=== PATIENT | male | born 1955 | race Caucasian/White ===

== ENCOUNTER 2019-08-14 09:00 | Observation (INO) | payer BC, OTHER ==
[2019-08-13 08:39] VITALS: BMI 25.7
[~2019-08-14 09:00] MED LIST: HEPARIN SODIUM,PORCINE 5,000 UNIT/ML 1 ML VIAL SQ ONE
[2019-08-14] MEDS ORDERED: fentaNYL (PF) 50 MCG/ML 2 ML AMP IV PRN (09:07)
[2019-08-14] MEDS ORDERED: LIDOCAINE 1% (10MG/ML) FOR IV START INTRADERMA ONE ×2 (10:20)
[2019-08-14] MEDS: LACTATED RINGERS 1,000 ML IV SCH (10:20)
[2019-08-14] MEDS ORDERED: DEXAMETHASONE SOD PHOSPHATE 10 MG/ML 1 ML VIAL IV ONE (10:20)
[2019-08-14] MEDS: ONDANSETRON 4 MG/2 ML VIAL IVP ONE ×2 (10:20→15:10)
[2019-08-14 10:24] LABS: Appearance,Urine Clear (Clear); Bilirubin,Urine Negative (Negative); Blood,Urine Trace (Negative); Color,Urine Yellow; Glucose,Urine (UA) Negative (Negative); Hyaline Casts,Urine 1 /lpf (0-2); Ketones,Urine Negative (Negative); Leukocyte Esterase,Urine Negative (Negative); Mucus,Urine Many /hpf; Nitrite,Urine Negative (Negative); Protein,Urine Trace (Negative); RBC,Urine 6 /hpf (0-5); Specific Gravity,Urine 1.033 (1.001-1.035); Urobilinogen,Urine <2.0 mg/dL (<2.0); WBC,Urine 1 /hpf (0-5)
[2019-08-14 10:35] LABS: HCT 41.5 % (39.0-53.0); HGB 13.8 gm/dL (13.0-17.5); MCH 28.8 pg (25.0-35.0); MCHC 33.1 g/dL (31.0-37.0); MCV 86.9 fL (80.0-100.0); Mean Platelet Volume 7.2; Platelet Count 243 k/uL (150-450); RBC 4.78 m/uL (4.30-5.90); RDW 12.6 % (11.5-15.5); WBC 6.3 k/uL (3.8-10.6)
[2019-08-14 10:51] LABS: Potassium 4.5 mmol/L (3.5-5.1)
[2019-08-14] MEDS ORDERED: GLYCOPYRROLATE 0.2 MG/ML 2 ML VIAL ONE (12:31)
[2019-08-14] MEDS ORDERED: MIDAZOLAM 2 MG/2 ML VIAL ONE (12:31)
[2019-08-14] MEDS ORDERED: LIDOCAINE 1% INJ 10MG/ML (20 ML MDV) ONE (12:31)
[2019-08-14] MEDS ORDERED: NEOSTIGMINE 1 MG/ML 10 ML VIAL ONE (12:31)
[2019-08-14] MEDS ORDERED: fentaNYL (PF) 50 MCG/ML 2 ML AMP ONE (12:31)
[2019-08-14] MEDS ORDERED: PROPOFOL 10 MG/ML 20 ML VIAL IV ONE (12:31)
[2019-08-14] MEDS ORDERED: ROCURONIUM BROMIDE 10 MG/ML 5 ML VIAL IV ONE (12:31)
[2019-08-14] MEDS ORDERED: SUCCINYLCHOLINE CHLORIDE 100 MG/5 ML SYR IV ONE (12:31)
[2019-08-14] MEDS ORDERED: BUPIVACAINE (PF) 0.25% 30 ML VIAL SQ ONE ×3 (13:05→14:49)
--- NOTE | 2019-08-14 14:21 | P.OP ---
Date of Procedure: 08/14/19 Preoperative Diagnosis: Prostate cancer Postoperative Diagnosis: Prostate cancer Procedure(s) Performed: Robotic radical prostatectomy Robotic extended bilateral pelvic pelvic lymph node dissection Anesthesia: SUNNY Surgeon: Chon Chase [employer] #1: Rhys Gonzalez Estimated Blood Loss (ml): 100 IV fluids (ml): 1,000 Urine output (ml): 150 Pathology: other (Prostate and seminal vesicles. Right and left pelvic lymph nodes) Condition: stable Disposition: PACU Indications for Procedure: Unfavorable intermediate risk prostate cancer Operative Findings: #1 large prostate #2 but bilateral enlarged lymph nodes Description of Procedure: This is a patient with a history of prostate cancer. The procedure of robot assisted laparoscopic radical prostatectomy was discussed with the patient including the potential risks and complications of the procedure. He elected to proceed with the operation. A nodule was not detected on digital exam under anesthesia.The patient was placed in a supine, Trendelenberg position with adequate padding of the pressure points, shoulders, back, legs and arms. He was then prepped and draped in the standard fashion. A 18F zee catheter was placed to gravity drainage. A Veress needle was placed through a mera-umbilical puncture and a pneumo-peritoneum created to 20mmHg during port placement which is thereafter lowered to 15mmHg.A 8 mm port on the left side of the umbilicus was placed for the scope. Next,under vision a 8mm robotic ports was placed lateral to each rectus slightly below the camera port. The right security assistant right iliac fossa 12mm port and right paramedian 5mm port were placed followed by the left iliac fossa 5mm port. The robot was then docked to the 8mm robotic ports and then each robotic arm and tower was checked in relation to the patient's legs and hands to avoid inadvertent compression.The peritoneal cavity was inspected and then an inverted U-shaped incision began laterally to the left medial umbilical ligament and extended high across the midline to the right umbilical ligament. The limbs of the "U" extended to the level of the vasa on both sides. We next developed the preperitoneal space and the space of Retzius. The endopelvic fascia was divided and the levator muscle was reflected off the lateral surface of the prostate. Cautery was used to dissected the bladder away from the prostate. After the anterior bladder neck was incised and the bladder entered the the posterior bladder neck was exposed and the ureteral orifices identified. The posterior bladder neck was then incised and dissected away from the prostate. The bladder neck was noted to be normal and did not require reconstruction. The vas and the seminal vesicles were now exposed and dissected to their insertions into the prostate and were not spared. The posterior layer of the Denonvillier's fascia was incised to enter into the plane between prostate and perirectal fat.Each lateral pedicle was controlled with clips and cautery for hemostasis. Nerve preservation was performed on the right and no nerve sparing on the left side. The puboprostatic ligament was incised where it inserted into the apex of the prostate and a plane between urethra and dorsal venous complex developed to expose the anterior urethral surface. The anterior wall of the urethra was transected with the scissors a few millimeters distal to the apex of the prostate. DV suture was placed. The freed specimen was then inspected and placed in an endo-catch specimen retrieval bag. The prostate was removed following the completion of the anastomosis. There was attention paid to hemostasis with judicious use of cautery.Two 3-0 V-Lock stitches (MVAC) tied together to form a pledget were used to complete the running continuous circumferential urethrovesical anastamosis with dual layer reconstruction. The outer layer V- Lock suture was placed initially to reapproximate Denonvillier's fascia posteriorly before placing the inner layer MVAC suture as the urethrovesical anastamosis proper. After the inner layer was tied, the anastamosis was checked for leaks before closing the outer layer anteriorly. A new 20 [place] Zee catheter was introduced and inflated to 20cc. The bladder was filled with 250 cc saline, with the balloon to test the integrity of the anastomosis.No leak was identified. The specimen was removed after enlarging the umbilical port incision as required. The umbilical fascia was closed with PDS suture and closed in layers. All ports were closed with a subcuticular stitch. Sponge, instrument, and needle counts were correct at the end of the case. The patient tolerated the procedure well and was accompanied to the recovery room in stable condition
[2019-08-14] MEDS ORDERED: LACTATED RINGERS 1,000 ML IV ONE (14:30)
[2019-08-14] MEDS: HYDROmorphone 0.5 MG/0.5 ML SYRINGE IVP PRN ×2 (15:10→15:16)
[2019-08-14] MEDS ORDERED: [UNRECOGNIZED DRUG - OTHER] PO PRN (15:39)
[2019-08-14] MEDS ORDERED: PHENYLEPH PO PRN (15:39)
[2019-08-14] MEDS ORDERED: [UNRECOGNIZED DRUG - REMARK] PO SCH (15:39)
[2019-08-14] MEDS ORDERED: GUAIFEN PO PRN (15:39)
[2019-08-14] MEDS ORDERED: MAG HYDROX/AL HYDROX/SIMETH 30 ML CUP PO PRN (15:39)
[2019-08-14] MEDS ORDERED: ACETAMINOPHN PO PRN (15:39)
[2019-08-14] MEDS: DEXTROSE 5%-0.45% NACL 1,000 ML IV SCH (16:35)
[2019-08-14] MEDS: HEPARIN SODIUM,PORCINE 5,000 UNIT/ML 1 ML VIAL SQ SCH ×2 (16:36→22:43)
[2019-08-14] MEDS: ONDANSETRON 4 MG/2 ML VIAL IVP PRN (18:24)
[2019-08-14] MEDS: KETOROLAC 30 MG/ML 1 ML VIAL IVP PRN (18:25)
[2019-08-14] MEDS: buPROPion SR 150 MG TABLET.ER PO SCH (20:49)
[2019-08-14] MEDS: HYDROmorphone 1 MG/ML 1 ML SYRINGE IVP PRN (22:44)
[2019-08-15] MEDS: DEXTROSE 5%-0.45% NACL 1,000 ML IV SCH ×3 (00:35→16:56)
[2019-08-15] MEDS: ACETAMINOPHEN TAB 325 MG TAB PO PRN (05:03)
[2019-08-15] MEDS: ONDANSETRON 4 MG/2 ML VIAL IVP PRN (07:09)
[2019-08-15] MEDS: KETOROLAC 30 MG/ML 1 ML VIAL IVP PRN (08:05)
[2019-08-15] MEDS: FLUTICASONE 50MCG/SPRAY NASAL 16GM EA NOSTRIL SCH (08:08)
[2019-08-15] MEDS: HEPARIN SODIUM,PORCINE 5,000 UNIT/ML 1 ML VIAL SQ SCH ×3 (08:10→23:03)
[2019-08-15] MEDS ORDERED: HYDROcodone/APAP 5-325MG 1 EACH TAB PO PRN ×2 (08:40)
--- NOTE | 2019-08-15 08:40 | P.PN ---
Subjective Progress Note Date: 08/15/19 Principal diagnosis: POD #1, s/p RALP. The patient reports a headache, which she believes is the cause of the nausea he is experiencing. He denies any significant abdominal pain. He denies chest pain or shortness of breath. He got out of bed to brush his teeth but otherwise has not ambulated. Objective - Vital Signs Vital signs: Vital Signs Temp 100.4 F H 08/15/19 05:09 Pulse 89 08/15/19 05:09 Resp 16 08/15/19 05:09 BP 127/67 08/15/19 05:09 Pulse Ox 94 L 08/15/19 05:09 Intake & Output 08/14/19 08/15/19 08/15/19 18:59 06:59 18:59 Intake Total 1650 240 Output Total 225 700 Balance 1425 -460 Weight 82.9 kg Intake: IV 1650 Oral 240 Output: Urine 175 700 Uretheral (Gallegos) 700 Estimated Blood Loss 50 Other: Voiding Method Indwelling Catheter Indwelling Catheter - Constitutional General appearance: Present: average body habitus, mild distress - Gastrointestinal Gastrointestinal Comment(s): Soft, non-distended. Incisions clean, dry, and intact. - Psychiatric Psychiatric: Present: A&O x's 3 - Labs CBC & Chem 7: 08/14/19 10:15 08/14/19 10:15 Labs: Abnormal Lab Results - Last 24 Hours (Table) 08/14/19 Range/Units 09:54 Urine Protein Trace H (Negative) Urine Blood Trace H (Negative) Urine RBC 6 H (0-5) /hpf Urine Mucus Many H (None) /hpf Assessment and Plan (1) Malignant neoplasm of prostate Current Visit: Yes Status: Acute Code(s): C61 - MALIGNANT NEOPLASM OF PROSTA TE SNOMED Code(s): 111143566 Plan: Fioricet has been ordered, as this effectively relieved the patient's headaches at home. He will be discharged home later today if he is feeling better.
[2019-08-15] MEDS ORDERED: ONDANSETRON 4 MG/2 ML VIAL IVP PRN (08:42)
[2019-08-15] MEDS: BUTALB/APAP/CAFF 50-325-40MG TAB PO PRN ×2 (08:48→12:29)
[2019-08-15] MEDS: MULTIVITAMINS, THERA 1 EACH TAB PO SCH (12:31)
[2019-08-15] MEDS: buPROPion SR 150 MG TABLET.ER PO SCH ×2 (12:31→19:47)
[2019-08-15] MEDS: CITALOPRAM HYDROBROMIDE 20 MG TAB PO SCH (13:19)
[2019-08-15] MEDS: HYDROmorphone 1 MG/ML 1 ML SYRINGE IVP PRN (20:39)
[2019-08-16 04:34] VITALS: BP 138/79; PULSE 87; RESP 16; TEMP 97.5
[2019-08-16] MEDS: ACETAMINOPHEN TAB 325 MG TAB PO PRN (04:41)
[2019-08-16] MEDS: DEXTROSE 5%-0.45% NACL 1,000 ML IV SCH (05:19)
[2019-08-16] MEDS: BUTALB/APAP/CAFF 50-325-40MG TAB PO PRN (06:18)
[2019-08-16] MEDS: FLUTICASONE 50MCG/SPRAY NASAL 16GM EA NOSTRIL SCH (08:08)
[2019-08-16] MEDS: buPROPion SR 150 MG TABLET.ER PO SCH (08:08)
[2019-08-16] MEDS: MULTIVITAMINS, THERA 1 EACH TAB PO SCH (08:08)
[2019-08-16] MEDS: CITALOPRAM HYDROBROMIDE 20 MG TAB PO SCH (08:09)
[2019-08-16] MEDS: HEPARIN SODIUM,PORCINE 5,000 UNIT/ML 1 ML VIAL SQ SCH (08:09)
[2019-08-16] MEDS: KETOROLAC 30 MG/ML 1 ML VIAL IVP PRN (08:09)
[2019-08-16] MEDS: LACTATED RINGERS 1,000 ML IV SCH (09:12)
--- NOTE | 2019-08-16 10:00 | P.DS ---
Providers Date of admission: 08/15/19 07:42 Attending physician: Chon Chase Primary care physician: Physician Nonstaff Hospital Course: The patient is 64. He underwent a robotic-assisted radical prostatectomy on 08/14/2019. He had problems with headache and nausea postoperatively which kept in the hospital another 24 hours. He is improving. Nausea is controlled with Zofran the headache with the Toradol. He has no abdominal pain his urine is clear. He would like to go home. He'll be discharged home with Toradol and Zofran. He will follow-up with his urologist in [place], Dr. Bernal. Dr. Bernal and will communicate appropriately as far as further follow-up. He'll be discharged home with the Gallegos catheter. Postoperative instructions been given. The patient understands and consents to this discharge. Pathology report is pending upon discharge Patient Condition at Discharge: Good Plan - Discharge Summary Discharge Rx Participant: Yes New Discharge Prescriptions: New Ciprofloxacin HCl [Cipro] 250 mg PO Q12HR #6 tablet Ketorolac [Toradol] 10 mg PO Q6HR PRN #15 tab PRN Reason: Moderate To Severe Pain No Action Fluticasone Nasal [place] [Flonase Nasal [place]] 2 spr EA NOSTRIL DAILY Finasteride [Proscar] 5 mg PO DAILY Bicalutamide [Casodex] 50 mg PO DAILY buPROPion SR [Wellbutrin Sr] 150 mg PO BID Citalopram Hydrobromide [Citalopram HBr] 40 mg PO DAILY Multivit-Min/Folic/Vit K/Lycop [Men's Multivitamin Tablet] 1 each PO DAILY Acetaminophen [Tylenol Arthritis] 650 mg PO DIRECTED PRN PRN Reason: Pain Guaifen/Phenyleph/Acetaminophn [Tylenol Sinus Severe Caplet] 1 each PO DAILY PRN PRN Reason: Allergy Symptoms Allergy Injections 1 tab PO Q14D Discharge Medication List Acetaminophen [Tylenol Arthritis] 650 mg PO DIRECTED PRN 08/13/19 [History] Allergy Injections 1 tab PO Q14D 08/13/19 [History] Bicalutamide [Casodex] 50 mg PO DAILY 08/13/19 [History] Citalopram Hydrobromide [Citalopram HBr] 40 mg PO DAILY 08/13/19 [History] Finasteride [Proscar] 5 mg PO DAILY 08/13/19 [History] Fluticasone Nasal [place] [Flonase Nasal [place]] 2 spr EA NOSTRIL DAILY 08/13/19 [History] Guaifen/Phenyleph/Acetaminophn [Tylenol Sinus Severe Caplet] 1 each PO DAILY PRN 08/13/19 [History] Multivit-Min/Folic/Vit K/Lycop [Men's Multivitamin Tablet] 1 each PO DAILY 08/13/19 [History] buPROPion SR [Wellbutrin Sr] 150 mg PO BID 08/13/19 [History] Ciprofloxacin HCl [Cipro] 250 mg PO Q12HR #6 tablet 08/15/19 [Rx] Ketorolac [Toradol] 10 mg PO Q6HR PRN #15 tab 08/15/19 [Rx] Follow up Appointment(s)/Referral(s): Chon Chase MD [STAFF PHYSICIAN] - 1 Week Activity/Diet/Wound Care/Special Instructions: Discharge home with Gallegos catheter. Instruct patient to use overnight drainage bag as well as urinary leg bag. Okay to shower. Diet as tolerated. No lifting, driving, or strenuous activity. Reassure patient that abdominal wall ecchymosis and penoscrotal swelling are normal. Instruct patient to begin taking antibiotics one day prior to Gallegos catheter removal. Patient should di scontinue taking finasteride and bicalutamide.
== END 2019-08-16 12:08 | disposition home or self-care (01) ==
LOC: OR 09:00 → 5NMEDONC 14:55 → OR 08-15 07:42 → 5NMEDONC 08-15 07:42
PROVIDERS: ADMIT Urology; ATTEND Urology
DX: C61 Malignant neoplasm of prostate (principal); C77.5 Secondary and unspecified malignant neoplasm of intrapelvic lymph nodes; Z79.899 Other long term (current) drug therapy; R51 Headache; R11.0 Nausea
CPT/HCPCS: 55866; 38571; 86900; 86901; 80051; 85027; 86850; 81001; 88307; 88309; G0378 ×2; C1762; J1644 ×3; J1100; S0106 ×3; J0690; J2405 ×3; J1885 ×3; J1170 ×3